=== PATIENT | female | born 1945 | race Caucasian/White ===

== ENCOUNTER 2023-09-05 10:18 | Emergency (ER) | payer MEDICARE, BC, SELFPAY ==
[2023-09-05 10:22] VITALS: BP 125/70
[2023-09-05 11:28] VITALS: BMI 26.9
[2023-09-05 11:38] LABS: % Basophils 0.4 % (0-2); % Eosinophils 0.9 % (0-6); % Immature Granulocytes 0.2 % (0-0.5); % Lymphocytes 29.5 % (20.5-51.1); % Monocytes 8.6 % (1.7-9.3); % Neutrophils 60.4 % (42.2-75.2); Absolute Eosinophils 0.1 10^3/uL (0-0.7); Absolute Lymphocytes 2.9 10^3/uL (1.2-3.4); Absolute Monocytes 0.8 10^3/uL (0.1-0.6); Absolute Neutrophils 5.9 10^3/uL (1.4-6.5); Hematocrit 44.5 % (37.0-47.0); Hemoglobin 15.7 g/dL (12.0-16.0); Mean Corp Hgb Conc. 35.3 g/dL (33.0-37.0); Mean Corpuscular Hgb 32.6 pg (27.0-31.0); Mean Corpuscular Volume 92.3 fL (81.0-99.0); Nucleated Red Blood Cells % 0 %; Platelet Count 236 10^3/uL (130-400); Red Blood Cell Count 4.82 10^6/uL (4.20-5.40); Red Cell Dist. Width 13.8 % (11.5-14.5); White Blood Cell Count 9.8 10^3/uL (4.8-10.8)
--- NOTE | 2023-09-05 11:48 | ED.GENMED ---
History of Present Illness
General
Chief Complaint: Abdominal Symptoms
Source: patient
Exam Limitations: none
Time Seen by Provider: 09/05/23 11:32
Nursing documentation reviewed up to this point in time: agreed with
Travel History
Have you had any contact with someone who has COVID-19?: No
Do you have any symptoms of coronavirus? Fever > 100 degrees, chills, cough, shortness of breath, sore throat, loss of taste or smell, muscle aches, or headache?: No
History of Present Illness
History of Present Illness:
78-year-old female presents to the ER for evaluation. Patient reports yesterday she had intense abdominal pain and had at least 7 episodes of loose diarrhea. Starting late last night however since she had some dark blood in the toilet water. She
reports at 3 AM she had an additional episode as well as 9 AM. She describes this as' dark puddles of blood,' in the toilet water.' She does report that the pain has since resolved. SHe is not on blood thinners. She denies any history of rectal
bleeding in the past. No prior history abdominal surgeries.
No other sick contacts at home. No reports of fevers illness fatigue malaise.
Review of Systems
Review of Systems
Allergies reviewed?: Yes
All Other Systems: ROS reviewed and negative except as documented in HPI and ROS
Constitutional: Reports no symptoms
ABD/GI: Reports abdominal pain (pt had abd pain yesterday resolved now ), diarrhea, bloody stools and other; Denies nausea or vomiting
: Reports no symptoms
Musculoskeletal: Reports no symptoms
Skin: Reports no symptoms
Hematologic/Lymphatic: Reports no symptoms
Psychiatric: Reports no symptoms
Phy Exam
General Physical Exam
General Presentation: well appearing
General age: appears stated age
General Skin: warm and dry
General Habitus: normal
General Mental: alert
General Hydration: appears well hydrated
Gastrointestinal Exam
Gastrointestinal Exam: non tender, soft and other (small amt of bright red blood on rectal exam no obvious bleeding )
Neurological Exam
Neurological Exam: alert and oriented x3
Musculoskeletal Exam
Musculoskeletal Exam: full ROM
Skin Exam
Skin Exam: normal color and warm/dry
Psychiatric Exam
Psychiatric Exam: normal mood/affect
Course
Orders/Labs/Results
Orders:
Orders
09/05/23 11:22
IV Insert/Care/Rem.- Treatment PRN
09/05/23 11:25
Complete Blood Count/With Diff Urgent
Comprehensive Metabolic Panel Urgent
Lipase Urgent
Urinalysis Reflex To Culture Urgent
Date Specimen was Collected: 09/05/23
Time Specimen was Collected: 11:22
Urine Microscopic Reflex Cult Urgent
09/05/23 12:00
CT Abd/pelvis W Iv Cont Urgent
Comment:
Reason For Exam: abd pain bloody stools
0.9% Sodium Chloride 1000 ml [Nss] 1,000 ml IV BOLUS
09/05/23 14:19
Amoxicillin 875 mg/Clav 125 mg [Augmentin 875 mg/125 mg] 1 tablet PO NOW STA
Abnormal Lab Results
09/05/23
11:25
MCH 32.6 H pg
(27.0-31.0)
Absolute Monos (auto) 0.8 H 10^3/uL
(0.1-0.6)
BUN 19 H mg/dl
(7-17)
Glucose 102 H mg/dl
(70-99)
Urine Bilirubin 1+ A
(Negative)
Leukocyte Esterase Rfl Trace A
(Negative)
Urine Bacteria (Reflex) Few A
(Negative)
Urine Yeast Few A
(Negative)
09/05/23 11:25
09/05/23 11:25
Vital Signs
Initial and Last Documented VS:
Initial Vital Signs
Temp Pulse Resp BP Pulse Ox
97.8 F 78 18 125/70 98
09/05/23 10:22 09/05/23 10:22 09/05/23 10:22 09/05/23 10:22 09/05/23 10:22
Last Documented Vital Signs
Temp Pulse Resp BP Pulse Ox
97.8 F 78 18 119/68 95
09/05/23 10:22 09/05/23 10:22 09/05/23 10:22 09/05/23 13:00 09/05/23 13:45
Cylinder Honer consulted with Physician
Cylinder Honer consulted with physician?: Yes ([facility] )
Name of Physician Consulted: [email or web address]
MDM/Problems Addressed
Differential Diagnosis Includes:
Not limited to GIB, colitis, less likely diverticulitis, anemia
MDM/Problems Addressed:
CAT scan shows nonspecific colitis involving the descending colon and sigmoid colon no evidence of pneumatosis no evidence of acute diverticulitis or bowel obstruction no free air aside. patient looks well states she feels well and is no acute
distress afebrile normal white count. Abdominal pain has since resolved no episodes of rectal bleeding here in the ER stable hemoglobin no fever. Case reviewed with ED physician will DC on Augmentin close patient follows up with pcp
*Radiology
Radiology exam reviewed: radiology read reviewed
*Critical Care Note
Total Time (30-74mins, 75-104mins- exclusive of procedures): Not Applicable
ED Attending Note
-
Portions of this chart may have been created with voice recognition software.� Occasional wrong word or��sound alike� substitutions may have occurred due to the inherent limitations of voice recognition software.
Discharge Plan
Departure
Patient Disposition: Home (Routine Discharge)
Date of Disposition: 09/05/23
Time of Disposition: 14:23
Patient with high blood pressure during this ER visit?: No
Condition: Fair
Covid-19: Not Applicable
Discharge Problem:
Colitis
Instructions: Grannis Diet, Bloody Stools, Adult (DC), Colitis (DC)
Prescriptions:
New
amoxicillin-pot clavulanate 875-125 mg tablet
1 tab PO BID Qty: 14 0RF
Referrals:
Annemarie Nicholas DO [Family Provider] -
Activity Restrictions/Additional Instructions:
As discussed your CAT scan showed colitis
Which was the cause of your abdominal pain and diarrhea/bloody stools. Follow bland diet as discussed. Augmentin was prescribed for you to take twice a day for the next 7 days. This antibiotic was sent to your pharmacy. Take as directed. stay
well-hydrated. Follow-up with your family doctor the next several days for reevaluation. Return if any worsening of symptoms including increasing bloody stools worsening abdominal pain fever chills or any further concerns.
Interventions
Interventions:
*Risk Screen - Suicide Last Done: 09/05/23 11:59
*General Assessment Last Done: 09/05/23 11:59
*Neglect/Abuse Screening Last Done: 09/05/23 11:59
ED- Fall Risk Assessment Last Done: 09/05/23 11:32
*ED COVID-19 Vaccine History Last Done: 09/05/23 10:24
*Nursing Disposition Last Done: 09/05/23 14:31
[facility] Assessment Last Done: 09/05/23 11:32
Discharge Date and Time
Discharge Date/Time: 09/05/23 14:32
[2023-09-05 11:55] LABS: ALT (SGPT) 16 U/L (0-35); AST (SGOT) 24 U/L (14-36); Albumin 4.5 g/dl (3.5-5.0); Alkaline Phosphatase 62 U/L (38-126); Blood Urea Nitrogen 19 mg/dl (7-17); Calcium 10.2 mg/dl (8.4-10.2); Carbon Dioxide 30 mmol/L (22-30); Chloride 101 mmol/L (98-107); Estimated Creatinine Clearance 47 ml/min; Glucose 102 mg/dl (70-99); Lipase 34 U/L (23-300); Potassium 3.6 mmol/L (3.5-5.1); Sodium 136 mmol/L (135-145); Total Bilirubin 0.8 mg/dl (0.2-1.3); Total Protein 7.2 g/dl (6.3-8.2); eGFR 58.39
[2023-09-05 12:11] LABS: Urine Albumin Negative (Neg - Trace); Urine Bilirubin 1+ (Negative); Urine Character Clear (Clear); Urine Color Amber; Urine Glucose Negative (Negative); Urine Ketone Negative (Negative); Urine Leukocyte Trace (Negative); Urine Nitrite Negative (Negative); Urine Occult Blood Negative (Negative); Urine Urobilinogen Negative (Neg - 1+); Urine pH 6.5 (5.0-9.0)
[2023-09-05] MEDS: NSS 1000 IV (12:23)
[2023-09-05 12:37] LABS: Urine Squamous Cell >30 /LPF (Few)
[2023-09-05 12:38] LABS: Urine Bacteria Few (Negative); Urine Red Blood Cell 0-2 /HPF (0-2); Urine Urothelial Cell 0-2 /LPF (FEW); Urine Yeast Few (Negative)
[2023-09-05 12:51] VITALS: BP 123/64
[2023-09-05 13:00] VITALS: BP 119/68
[2023-09-05] MEDS: AUGMENTIN 875 MG/125 MG 1 TABLET PO (14:23)
== END 2023-09-05 14:32 | disposition home or self-care (01) ==
LOC: EMR 10:18
PROVIDERS: EMERGENCY PHYSICIAN Emergency Medicine; FAMILY PHYSICIAN Family Medicine
DX: K52.9 Noninfective gastroenteritis and colitis, unspecified (principal)
CPT/HCPCS: 99285; 96360; 74177; 80053; 81003; 81015; 83690; 85025; Q9967

== ENCOUNTER → 2024-07-03 08:20 | Outpatient (REF) | payer MEDICARE, BC, SELFPAY | LOC: WDC 08:20 | PROVIDERS: ATTENDING PHYSICIAN Family Medicine | DX: Z12.31 Encounter for screening mammogram for malignant neoplasm of breast (principal) | CPT/HCPCS: 77063; 77067 ==

== ENCOUNTER → 2024-10-28 07:44 | Outpatient (REF) | payer MEDICARE, BC, SELFPAY | LOC: WDC 07:44 | PROVIDERS: ATTENDING PHYSICIAN Family Medicine | DX: R92.2 Inconclusive mammogram (principal) | CPT/HCPCS: 76641 ==

== ENCOUNTER → 2025-03-15 16:21 | Outpatient (REF) | payer MEDICARE, BC, SELFPAY | LOC: RAD 16:21 | PROVIDERS: ATTENDING PHYSICIAN Physician Assistant; FAMILY PHYSICIAN Family Medicine | DX: M25.552 Pain in left hip (principal) | CPT/HCPCS: 72192 ==